=== PATIENT | female | born 1995 | race Caucasian/White ===

== ENCOUNTER → 2020-10-27 08:09 | Outpatient (CLI) | payer OTHER, SELFPAY ==
[2020-10-27 14:07] LABS: Urine N gonorrhoeae NOT DETECTED
[2020-10-27 14:09] LABS: Urine Chlamydia NOT DETECTED
== END ==
PROVIDERS: PCP Family Medicine; Visit Provider Specialist
DX: Z34.81 Encounter for supervision of other normal pregnancy, first trimester (principal); Z3A.10 10 weeks gestation of pregnancy
CPT/HCPCS: 87491; 87591

== ENCOUNTER → 2020-10-27 08:40 | Outpatient (CLI) | payer OTHER, SELFPAY ==
[2020-10-27 09:52] LABS: Add Manual Diff / Slide Review NO; Basophils Absolute Auto 100 /uL (0-100); Eosinophils Absolute Auto 200 /uL (0-450); Eosinophils Percent Auto 2.3 % (2-4); Hematocrit 41.1 % (36-46); Hemoglobin 13.8 g/dL (12.0-16.0); Lymphocytes Absolute Auto 1600 /uL (1100-4500); Lymphocytes Percent Auto 21.5 % (25-40); Mean Corpuscular HGB Conc 33.5 % (30-36); Mean Corpuscular Hemoglobin 31.6 PG (26-34); Mean Corpuscular Volume 94.4 fL (80-100); Monocytes Absolute Auto 500 /uL (0-900); Monocytes Percent Auto 7.2 % (3-14); Neutrophils Absolute Auto 5100 /uL (1500-7000); Platelet Count 218 X10^3/uL (150-400); Red Blood Cell Count 4.36 X10^6/uL (4.0-5.2); Red Cell Distribution Width 12.5 % (11.6-14.8); White Blood Cell Count 7.5 X10^3/uL (4.5-11.0)
[2020-10-27 09:58] LABS: Appearance Urine UA CLEAR; Bilirubin Urine UA NEGATIVE (NEGATIVE); Color Urine UA YELLOW; Glucose Urine UA NEGATIVE (Negative); Ketones Urine UA NEGATIVE (NEGATIVE); Leukocyte Esterase Urine UA 1+ (NEGATIVE); Nitrite Urine UA NEGATIVE (Negative); Occult Blood Urine UA NEGATIVE (Negative); Protein Urine UA NEGATIVE (Negative); Specific Gravity Urine UA 1.015 (1.000-1.035); Urobilinogen Urine UA 0.2 E.U./dL (0.2)
[2020-10-27 10:21] LABS: Bacteria Urine Moderate (10-30); RBC Urine 0-1/HPF (0-5/HPF); Squamous Epithelial Cell Urine 1-5 /HPF (0-5/HPF); WBC Urine 1-5/HPF (0-5/HPF)
[2020-10-27 10:56] LABS: Hepatitis B Surface Antigen NEGATIVE s/c (NEGATIVE); Rubella Antibody IgG 6.4 IU/mL (>15)
[2020-10-27 11:17] LABS: HIV 1 & 2 Ab/Ag 4th Gen Combo NEGATIVE (NEGATIVE); Hep C Virus Ab w/Reflex Quant NEGATIVE s/c (NEGATIVE)
[2020-10-28 07:54] LABS: RPR Screen Non Reactive (Non Reactive)
[2020-10-28 08:13] LABS: Varicella IgG Antibody <135 index (Immune >165)
== END ==
PROVIDERS: PCP Family Medicine; Referring Provider Specialist; Visit Provider Specialist
DX: Z34.81 Encounter for supervision of other normal pregnancy, first trimester (principal); Z3A.10 10 weeks gestation of pregnancy
CPT/HCPCS: 36415; 80055; 81003; 81015; 86787; 86803; 86850; 86900; 86901; 87086; 87389; 87491; 87591

== ENCOUNTER → 2021-01-04 14:03 | Outpatient (CLI) | payer OTHER, SELFPAY ==
[2021-01-06 20:09] LABS: AFP, Serum 48.5 ng/mL (.); Calc Gestational Age Ultrasound (.); Estriol, Free 3.24 ng/mL (.); Inhibin A, Dimeric 108.78 pg/mL (.); Inhibin A, MoM 0.74 (.); Maternal Ethnicity Caucasian (.); Maternal Weight 185 lbs (.); Number of Fetuses No (.); OSBR Risk 1 IN 8933 (.); Results Report (.); Test Results *Screen Negative* (.); hCG, MoM 1.25 (.); hCG, Serum 28919 mIU/mL (.)
== END ==
PROVIDERS: PCP Family Medicine; Referring Provider Specialist; Visit Provider Specialist
DX: Z34.82 Encounter for supervision of other normal pregnancy, second trimester (principal); Z3A.19 19 weeks gestation of pregnancy
CPT/HCPCS: 36415; 82105; 82677; 84702; 86336

== ENCOUNTER → 2021-01-11 12:03 | Outpatient (CLI) | payer OTHER, SELFPAY ==
--- NOTE | 2021-01-11 12:03 | DI.US.S_ITS ---
PROCEDURE: US OB >= 14 WEEKS FETUS INDICATIONS: 20 WEEK ANATOMY OUTSIDE/PRIOR DATING DATA: Last menstrual period (LMP): 08/16/2020 LMP-based estimated date of delivery (MONAE): 05/23/2021. First dating scan (date and location): 10/27/2020. Estimated date of delivery (MONAE) from first dating scan: 05/31/2021. The calculations are made using the ultrasound MONAE of 05/31/2021. TECHNIQUE: Real-time scanning was performed of the fetus, with image documentation and biometric measurements. Endovaginal scanning: Yes COMPARISON: [facility], , OB >= 14 WEEKS FETUS, 01/04/2021, 13:50. FINDINGS: General: A single living intrauterine gestation is present. Presentation: Cephalic. Placenta: Placental position is posterior and left , with possible complete previa versus marginal placenta. Amniotic fluid index: 12.6 cm, normal range is 5-24 cm. Single deepest vertical pocket is 4.99 cm. heart rate: 139 beats per minute. Maternal cervical canal: 6.3 cm long. Normal lower limit is 2.5 cm. biometrics: Biparietal diameter: 4.7 cm, 20 weeks 1 day Head circumference: 17.3 cm, 19 weeks 6 days Abdominal circumference: 15.5 cm, 20 weeks 5 days Femur length: 3.3 cm, 20 weeks 1 day Clinically estimated gestational age: 20 weeks 0 days Composite gestational age from present scan: 20 weeks 2 days Estimated weight and percentile: 350 g, 67th percentile Anatomic survey: Neuro: Ventricles are non-dilated at less than 10 mm. Cisterna magna is normal at 3-11 mm. Cerebellum is normal in size and morphology. Nuchal skin fold: Normal at less than 6 mm between 14-21 weeks gestational age. Face: Nose and lips, facial profile are normal. Spine: No evidence for spina bifida. Heart: 4-chambered heart is present, with normal ventricular outflow tracts. Diaphragm: Diaphragm is intact. Stomach: Left-sided stomach is present. Kidneys: No hydronephrosis. Normal is less than 5 mm in 2nd trimester, less than 7 mm in 3rd trimester. Cord: 3-vessel cord has orthotopic insertion. Bladder: Normal in size. Extremities: All 4 extremities identified. IMPRESSION: 1. Living 2nd trimester intrauterine . Ultrasound age is 2 days greater than clinical age based on initial ultrasound. 2. Marginal versus complete previa. 3. Normal anatomy study. Comment: Recommend follow-up imaging to re-evaluate the relationship between the placenta and the cervical os. We strive to produce accurate, complete, and clear reports of imaging services. To assist us in improving patient care, this report was composed using standard report templates and voice recognition software. Therefore, it may contain abnormal punctuation, insertions and/or omissions. Occasional wrong-word or sound-alike substitutions may occur. Though we review the report and make efforts to correct it, we do recommend that the report be read carefully in proper context to recognize any text inaccuracies. Dictated by: Giorgio Marie M.D. on 01/11/2021 at 15:15 Approved by: Giorgio Marie M.D. on 01/11/2021 at 15:21
== END ==
PROVIDERS: PCP Family Medicine; Referring Provider Specialist; Visit Provider Specialist
DX: Z34.82 Encounter for supervision of other normal pregnancy, second trimester (principal); Z3A.20 20 weeks gestation of pregnancy
CPT/HCPCS: 76811; 76817

== ENCOUNTER → 2021-02-21 07:34 | Outpatient (CLI) | payer OTHER, SELFPAY ==
[2021-02-21 09:45] LABS: Hemoglobin 12.2 g/dL (12.0-16.0)
[2021-02-21 10:18] LABS: GTT (PREG) 1 Hour PP 50gm Dose 86 mg/dL (76-139)
== END ==
PROVIDERS: PCP Family Medicine; Referring Provider Specialist; Visit Provider Specialist
DX: Z34.82 Encounter for supervision of other normal pregnancy, second trimester (principal)
CPT/HCPCS: 36415; 82950; 85014; 85018

== ENCOUNTER 2021-03-07 09:14 | Emergency (ER) | payer OTHER, SELFPAY ==
[2021-03-07 09:15] VITALS: BP 123/76; PULSE 90; RESP 14; TEMP 36.2; O2SAT 99; BMI 36.0
--- NOTE | 2021-03-07 09:23 | ED_ITS ---
HPI - URI/Sore Throat General Chief Complaint: Upper Respiratory Symptoms Stated Complaint: sore throat/cough x3 days Time Seen by Provider: 03/07/21 09:19 Source: patient Mode of arrival: Ambulatory Limitations: no limitations History of Present Illness HPI Narrative: This is a 25-year-old female who is 20 weeks . Patient states she has had 4 days of nasal congestion, sore throat with blister on her tonsil and productive cough. Patient has been afebrile. She has not had any chest pain or shortness of breath. She denies any persistent nausea or vomiting. She has had some nausea with her . She has not any diarrhea constipation. No dysuria urgency or frequency. No vaginal bleeding. She denies any abdominal pain or cramping. Patient states she is vaccinated x2 for coronavirus she also had her flu shot. Patient denies any other medical issues she takes a beef liver supplement and vitamin. No major surgeries. No known drug allergies. Patient follows with Dr. Moody for her care. Related Data Home Medications Medication Instructions Recorded Confirmed magnesium citrate 125 mg capsule 125 mg PO DAILY 10/25/20 01/04/21 prenat.vits,steffany,[id number] 1 tab PO DAILY 10/25/20 01/04/21 Allergies Allergy/AdvReac Type Severity Reaction Status Date / Time No Known Drug Allergies Allergy Verified 03/07/21 09:29 Review of Systems Review of Systems ROS Unobtainable: All systems reviewed & are unremarkable except as noted in HPI and below Patient History Medical History Chicken pox Gastric ulcer SAB (spontaneous ) (~06/2020) Therapeutic (~2010) Surgical History History of dilation and curettage (~2010) [place] teeth extracted (~2016) Family History Father Addiction Mother Addiction Cervical cancer Cancer Hypertension Grandfather Heavy smoker History of ETOH abuse Substance abuse Lung disease Grandmother No problems noted. Grandfather Heavy smoker Lung disease Grandmother Diabetes mellitus Type 2 diabetes mellitus Hypertension Morbid obesity Sister Substance abuse Depression Addiction Family/Other Addiction Substance abuse History of ETOH abuse Family/Other Cancer Breast cancer Morbid obesity Family/Other Diabetes mellitus Brother ADHD Social History marital status: number of children: 0 household members: spouse lives independently: Yes caregiver/support person: No pets and animals: Yes (Dog X 1) education level: college (Ass. Degree and Registry for [employer] and in School for her BA.) occupational status: employed current occupational exposures/hazards: Yes special grayson needs: No Smoking Status: Never smoker second hand exposure: No (as a child - but not as an adult) alcohol intake: former (pre- : very rare use (1-2/month if at all)) substance use type: does not use Smoking Status: Never smoker Exam Narrative Exam Narrative: GEN: well nourished, well appearing female, alert and oriented x 3, patient appears to be in mild distress. HEENT: Atraumatic, pupils are equal round reactive to light, extraocular movements are intact, nares are clear, TMs are clear with no fluid. Throat erythematous, slight bilateral tonsillar enlargement, no exudate, no uvular deviation. Normal speech. No muffled or hoarse voice. HEART: Regular rate and rhythm without murmur, clicks, rubs. LUNGS:Lungs clear to auscultation, no wheezes, rales, crackles, chest moves symmetrically ABD:bowel sounds normal, soft, non-tender, no guarding, rebound, rigidity, no masses noted, no hepatosplenomegaly :No CVA tenderness, gravid. MSCL: Full range of motion, normal gait NEURO:CN 2-12 intact, sensation normal Initial Vital Signs Initial Vital Signs: Vital Signs Temperature 97.2 F L 03/07/21 09:15 Pulse Rate 90 03/07/21 09:15 Respiratory Rate 14 03/07/21 09:15 Blood Pressure 123/76 03/07/21 09:15 Pulse Oximetry 99 03/07/21 09:15 Course Orders Ordered: ED Orders 03/07/21 09:26 COVID19 -Nasal swab/Pre-Proc Stat Reevaluation(s) Reevaluation #1: Updated patient on her negative rapid strep as well as COVID swab. We discussed she can have repeat swab in 1-2 days if she wishes. heart tones were also obtained and were appropriate. Patient's main concern was really checking on baby and having heart tones today. All questions answered. She has been taking Tylenol and Benadryl as needed for symptom control. Vital Signs Vital signs: Vital Signs - 8 hr 03/07/21 09:15 Temperature 97.2 F L Pulse Rate 90 Respiratory Rate 14 Blood Pressure 123/76 Pulse Oximetry 99 MDM - URI/Sore Throat Lab Data Labs: Lab Results 03/07/21 Range/Units 09:26 SARS-CoV-2 (PCR) Negative (Negative) Point of Care Testing Rapid Strep A Negative MDM Narrative Medical decision making narrative: This is a 25-year-old female with upper respiratory symptoms and sore throat. She is vaccinated x2 for COVID. She has a negative point of care strep. COVID swab is negative she is 4 days into symptoms so we discussed she could repeat 1- 2 days if she wishes. Patient has been tolerating her symptoms well. heart tones were appropriate as she is 28 weeks . All questions answered. Discharge Plan Departure Patient Disposition: Home Clinical Impression: Upper respiratory infection Instructions: DI for Viral Upper Respiratory Infection -- Adult Activity Restrictions/Additional Instructions: Follow-up with your physician for recheck. Your rapid strep was negative. Your COVID swab was also negative today. If you are concerned it would be appropriate for home testing in a day or 2 but is you have had 4 days of symptoms this is less likely to be a false negative. You may take Tylenol as needed for any headaches or aches and pains. Please return if you are having new chest pain, shortness of breath, lightheadedness or passing out, persistent vomiting, sudden new swelling in her extremities or other new or concerning symptoms. Prescriptions: No Action magnesium citrate 125 mg capsule 125 mg PO DAILY 0RF prenat.vits,steffany,[id number] Tablet 1 tab PO DAILY 0RF Referrals: Shanthi Swartz MD [Primary Care Provider] -
[2021-03-07 09:43] LABS: COVID19 -Nasal RAPID Negative (Negative)
== END 2021-03-07 10:01 | disposition home or self-care (01) ==
PROVIDERS: Emergency Provider Emergency Medicine; PCP Family Medicine
DX: O26.892 Other specified pregnancy related conditions, second trimester (principal); Z3A.20 20 weeks gestation of pregnancy; Z20.822 Contact with and (suspected) exposure to COVID-19
CPT/HCPCS: 87635; 87880; 99281; 99283; C9803

== ENCOUNTER → 2021-05-03 16:15 | Outpatient (CLI) | payer OTHER, SELFPAY ==
[2021-05-04 13:09] LABS: Strep Grp B PCR NEG for Grp B Strep
== END ==
PROVIDERS: PCP Family Medicine; Visit Provider Specialist
DX: Z34.83 Encounter for supervision of other normal pregnancy, third trimester (principal); Z3A.36 36 weeks gestation of pregnancy
CPT/HCPCS: 87653

== ENCOUNTER 2021-05-31 14:45 | Outpatient (CLI) | payer OTHER, SELFPAY ==
--- NOTE | 2021-05-31 16:26 | P.TNLD_ITS ---
Visit Information Visit Information Date of evaluation: 05/31/21 Primary OB Provider: Sadia Moody Reason for Evaluation: Yes non-stress test non-stress test reason: other (Post dates) [facility] Medical History Chicken pox Gastric ulcer SAB (spontaneous ) (~06/2020) Therapeutic (~2010) Surgical History History of dilation and curettage (~2010) [place] teeth extracted (~2016) Family History Father Addiction Mother Addiction Cervical cancer Cancer Hypertension Grandfather Heavy smoker History of ETOH abuse Substance abuse Lung disease Grandmother No problems noted. Grandfather Heavy smoker Lung disease Grandmother Diabetes mellitus Type 2 diabetes mellitus Hypertension Morbid obesity Sister Substance abuse Depression Addiction Family/Other Addiction Substance abuse History of ETOH abuse Family/Other Cancer Breast cancer Morbid obesity Family/Other Diabetes mellitus Brother ADHD Social History marital status: number of children: 0 household members: spouse lives independently: Yes caregiver/support person: No pets and animals: Yes (Dog X 1) education level: college (Ass. Degree and Registry for [employer] and in School for her BA.) occupational status: employed current occupational exposures/hazards: Yes special grayson needs: No Smoking Status: Never smoker second hand exposure: No (as a child - but not as an adult) alcohol intake: former (pre- : very rare use (1-2/month if at all)) substance use type: does not use Evaluation Evaluation Baseline heart rate: 135 Variability: Moderate (11-25) monitor accelerations: Present Monitor Decelerations: Absent Contraction Frequency (minutes): 10 Uterine Contraction Intensity: Mild Category of Tracing: Reactive Status: Category l Diagnosis, Plan/Disposition Final Diagnosis (1) 40 weeks gestation of : Status: Acute Plan/Disposition Plan: Reactive nonstress test. Routine precautions reviewed. Patient has an appointment in 4 days. Induction in 1 week. OB Disposition: home
== END 2021-05-31 15:24 | disposition home or self-care (01) ==
LOC: OB 06-06 07:44
PROVIDERS: PCP Family Medicine; Referring Provider Specialist; Visit Provider Specialist
DX: O48.0 Post-term pregnancy (principal); Z3A.40 40 weeks gestation of pregnancy
CPT/HCPCS: 59025; G0378; G0379

== ENCOUNTER 2021-06-02 02:47 | Outpatient (CLI) | payer OTHER, SELFPAY ==
--- NOTE | 2021-06-02 08:25 | PM.OBTRLD ---
Visit Information Visit Information Date of evaluation: 06/02/21 Primary OB Provider: Sadia Moody On-call OB Provider: Cammie Londono Reason for Evaluation: Yes rule out labor Comments/Additional reasons for admission: 25-year-old at 40 weeks and 2 days coming in with regular contractions. Denies leaking or bleeding and reports good movement. Vital Signs Vital Signs: Temperature 35.8? blood pressure 123/77 heart rate 83 PFSH Medical History Chicken pox Gastric ulcer SAB (spontaneous ) (~06/2020) Therapeutic (~2010) Surgical History History of dilation and curettage (~2010) [place] teeth extracted (~2016) Family History Father Addiction Mother Addiction Cervical cancer Cancer Hypertension Grandfather Heavy smoker History of ETOH abuse Substance abuse Lung disease Grandmother No problems noted. Grandfather Heavy smoker Lung disease Grandmother Diabetes mellitus Type 2 diabetes mellitus Hypertension Morbid obesity Sister Substance abuse Depression Addiction Family/Other Addiction Substance abuse History of ETOH abuse Family/Other Cancer Breast cancer Morbid obesity Family/Other Diabetes mellitus Brother ADHD Social History marital status: number of children: 0 household members: spouse lives independently: Yes caregiver/support person: No pets and animals: Yes (Dog X 1) education level: college (Ass. Degree and Registry for [employer] and in School for her BA.) occupational status: employed current occupational exposures/hazards: Yes special grayson needs: No Smoking Status: Never smoker second hand exposure: No (as a child - but not as an adult) alcohol intake: former (pre- : very rare use (1-2/month if at all)) substance use type: does not use Evaluation Evaluation Baseline heart rate: 120 Variability: Moderate (11-25) monitor accelerations: Present Monitor Decelerations: Absent Contraction Frequency (minutes): 6 Category of Tracing: Reactive Cervical dilation (cm): 3 Cervical effacement (%): 50 station: -1 Diagnosis, Plan/Disposition Final Diagnosis (1) 40 weeks gestation of : Status: Acute Plan/Disposition Plan: 25-year-old at 40 weeks and 2 days who presented to the center for a labor check. NST reactive. Contractions were irregular every 3-6 minutes. SVE unchanged from clinic. She was sent home with return precautions. Follow-up in clinic her return to center as needed. OB Disposition: home
== END 2021-06-02 03:44 | disposition home or self-care (01) ==
LOC: LABOR 02:51 → OB 06-06 07:41
PROVIDERS: PCP Family Medicine; Referring Provider Family Medicine; Visit Provider Family Medicine
DX: O47.1 False labor at or after 37 completed weeks of gestation (principal); O48.0 Post-term pregnancy; Z3A.40 40 weeks gestation of pregnancy
CPT/HCPCS: 59025; G0378; G0379

== ENCOUNTER 2021-06-05 07:51 | Outpatient (CLI) | payer OTHER, SELFPAY ==
--- NOTE | 2021-06-05 09:21 | PM.OBTRLD ---
Visit Information Visit Information Date of evaluation: 06/05/21 Primary OB Provider: Sadia Moody Reason for Evaluation: Yes non-stress test non-stress test reason: other (Post dates) Vital Signs Vital Signs: Blood pressure 128/79, pulse of 85, temperature 97.3? [facility] Medical History Chicken pox Gastric ulcer SAB (spontaneous ) (~06/2020) Therapeutic (~2010) Surgical History History of dilation and curettage (~2010) [place] teeth extracted (~2016) Family History Father Addiction Mother Addiction Cervical cancer Cancer Hypertension Grandfather Heavy smoker History of ETOH abuse Substance abuse Lung disease Grandmother No problems noted. Grandfather Heavy smoker Lung disease Grandmother Diabetes mellitus Type 2 diabetes mellitus Hypertension Morbid obesity Sister Substance abuse Depression Addiction Family/Other Addiction Substance abuse History of ETOH abuse Family/Other Cancer Breast cancer Morbid obesity Family/Other Diabetes mellitus Brother ADHD Social History marital status: number of children: 0 household members: spouse lives independently: Yes caregiver/support person: No pets and animals: Yes (Dog X 1) education level: college (Ass. Degree and Registry for [employer] and in School for her BA.) occupational status: employed current occupational exposures/hazards: Yes special grayson needs: No Smoking Status: Never smoker second hand exposure: No (as a child - but not as an adult) alcohol intake: former (pre- : very rare use (1-2/month if at all)) substance use type: does not use Review of Systems Review of Systems Narrative: Good movement. No leakage of fluid. No headaches, scotomata, epigastric pain. Contractions throughout the weekend but nothing regular. Evaluation Evaluation Baseline heart rate: 140 Variability: Moderate (11-25) monitor accelerations: Present Monitor Decelerations: Absent Category of Tracing: Reactive Status: Category l Cervical dilation (cm): 3 Cervical effacement (%): 80 station: 0 Diagnosis, Plan/Disposition Plan/Disposition Plan: Reactive nonstress test for postdates. Patient is scheduled for induction in 3 days. Routine precautions reviewed. OB Disposition: home
== END 2021-06-05 08:34 | disposition home or self-care (01) ==
LOC: LABOR 07:53 → OB 06-12 09:25
PROVIDERS: PCP Family Medicine; Referring Provider Specialist; Visit Provider Specialist
DX: O48.0 Post-term pregnancy (principal); Z3A.40 40 weeks gestation of pregnancy
CPT/HCPCS: 59025; G0378; G0379

== ENCOUNTER 2021-06-08 14:44 | Observation (INO) | payer OTHER, SELFPAY ==
[2021-06-08 16:31] LABS: Add Manual Diff / Slide Review NO; Basophils Absolute Auto 0 /uL (0-100); Basophils Percent Auto 0.4 % (0-2); Eosinophils Absolute Auto 100 /uL (0-450); Eosinophils Percent Auto 1.3 % (2-4); Hematocrit 34.4 % (36-46); Hemoglobin 11.4 g/dL (12.0-16.0); Lymphocytes Absolute Auto 1900 /uL (1100-4500); Lymphocytes Percent Auto 17.3 % (25-40); Mean Corpuscular HGB Conc 33.2 % (30-36); Mean Corpuscular Hemoglobin 26.6 PG (26-34); Mean Corpuscular Volume 80.2 fL (80-100); Monocytes Absolute Auto 900 /uL (0-900); Monocytes Percent Auto 8.1 % (3-14); Neutrophils Absolute Auto 7900 /uL (1500-7000); Neutrophils Percent Auto 72.9 % (50-75); Platelet Count 276 X10^3/uL (150-400); Red Blood Cell Count 4.29 X10^6/uL (4.0-5.2); Red Cell Distribution Width 14.3 % (11.6-14.8); White Blood Cell Count 10.8 X10^3/uL (4.5-11.0)
[2021-06-08] MEDS: OXYTOCIN PREMIX 30 UNIT/500 ML PLAST..BAG IV (16:36)
[2021-06-08] MEDS: LACTATED RINGERS 1,000 ML 100 ML IV (16:36)
--- NOTE | 2021-06-08 17:23 | PM.OBHP.1 ---
OB HPI Date/Time Date of admission: 06/08/21 Date Patient Seen: 06/08/21 Time Patient Seen: 17:23 History of Present Condition Chief complaint: INDUCTION : 3 Para: 0 Estimated Date of Delivery: 05/31/21 Estimated Gestational Age (weeks): 41 Narrative: Jamee Ruiz is a 25 year old female admitted for induction for postdates and LGA infant Indications Indication for induction OB: post dates History of Present care: good care, initiated at week # (9), number of visits (13) and pounds weight gain (40) Dating criteria: based on 1st trimester US only Ultrasounds: normal mid trimester US Obstetrical complications: none Medical complications: none Preadmission Labs Blood type: O (+) positive -: Antibody screen: negative, GBS status: negative, HBsAG: negative, HIV: negative and RPR/VDLR: negative -: Chlamydia screen: not detected and Gonorrhea screen: not detected -: Rubella: not immune and Varicella: not immune HCAB: negative Quad screen: Normal 1 hr GTT: 86 Evaluation Evaluation Baseline heart rate: 130 Variability: Moderate (11-25) monitor accelerations: Present Monitor Decelerations: Absent Category of Tracing: Reactive Status: Category l Dilation (cm): 4 Effacement (%): 75 station: -1 Position of cervix: posterior Consistency: medium PFSH Medical History Chicken pox Gastric ulcer SAB (spontaneous ) (~06/2020) Therapeutic (~2010) Surgical History History of dilation and curettage (~2010) [place] teeth extracted (~2016) Family History Father Addiction Mother Addiction Cervical cancer Cancer Hypertension Grandfather Heavy smoker History of ETOH abuse Substance abuse Lung disease Grandmother No problems noted. Grandfather Heavy smoker Lung disease Grandmother Diabetes mellitus Type 2 diabetes mellitus Hypertension Morbid obesity Sister Substance abuse Depression Addiction Family/Other Addiction Substance abuse History of ETOH abuse Family/Other Cancer Breast cancer Morbid obesity Family/Other Diabetes mellitus Brother ADHD Social History marital status: number of children: 0 household members: spouse lives independently: Yes caregiver/support person: No pets and animals: Yes (Dog X 1) education level: college (Ass. Degree and Registry for [employer] and in School for her BA.) occupational status: employed current occupational exposures/hazards: Yes special grayson needs: No Smoking Status: Never smoker second hand exposure: No (as a child - but not as an adult) alcohol intake: former (pre- : very rare use (1-2/month if at all)) substance use type: does not use Meds Home Medications and Allergies Home Medications Medication Instructions Recorded Confirmed Type magnesium citrate 125 mg capsule 125 mg PO DAILY 10/25/20 06/08/21 History prenat.vits,steffany,[id number] 1 tab PO DAILY 10/25/20 06/08/21 History omeprazole 40 mg capsule,delayed 40 mg PO DAILY #30 cap 05/29/21 06/08/21 Rx release Allergies Allergy/AdvReac Type Severity Reaction Status Date / Time No Known Drug Allergies Allergy Verified 06/08/21 16:20 Review of Systems Review of Systems Narrative: Good movement. No leakage of fluid. No headaches, scotoma or epigastric pain. OB Exam Narrative Exam Narrative: HEENT exam within normal limits. Lungs are clear to auscultation percussion. Heart is regular rate and rhythm no S3-S4 murmurs. Abdomen is gravid. Fetus is vertex. Extremities without edema and nontender. Objective Labs Result Diagrams: 06/08/21 15:45 Labs: Laboratory Results - last 24 hr 06/08/21 15:45 WBC 10.8 RBC 4.29 Hgb 11.4 L Hct 34.4 L MCV 80.2 MCH 26.6 MCHC 33.2 RDW 14.3 Plt Count 276 Neut % (Auto) 72.9 Lymph % (Auto) 17.3 L [place] % (Auto) 8.1 Eos % (Auto) 1.3 L Baso % (Auto) 0.4 Neut # (Auto) 7900 H Lymph # (Auto) 1900 [place] # (Auto) 900 Eos # (Auto) 100 Baso # (Auto) 0 Assessment and Plan Assessment and Plan Assessment and Plan narrative: Patient is 41 weeks gestation admitted for induction for postdates and LGA . Ultrasound performed on 05/31/2021 fetus measured 9 lb 10 oz. Time Spent with Patient Total time spent with greater than 50% in coordination of care (as documented) at patient's floor/unit and/or counseling patient:: less than 15 minutes
[2021-06-08 17:49] VITALS: BP 123/80
[2021-06-08 19:44] LABS: COVID19 -Nasal RAPID Negative (Negative)
--- NOTE | 2021-06-08 20:16 | PM.OBPNLAB ---
Date/Time Date Patient Seen: 06/08/21 Time Patient Seen: 20:05 Pain Control Pain control: tolerating well Comments: Patient is feeling contractions but not very painful yet. Contractions Pitocin rate (mU/min): 6 Contraction frequency (min): 2 Status status: Category l Heart Rate Baseline: 120 Monitor Accelerations: Present Monitor Decelerations: Absent Monitor Variability: Moderate Assessment and Plan Comments: 25 year old at 41 weeks here for postdates induction. Due to staffing, will turn off pitocin for now (hopefully three hours) and restart tonight once staffing is appropriate. Patient and her understand and are in agreement with plan.
--- NOTE | 2021-06-09 09:23 | PM.DS.1 ---
History of Present Illness History of Present Illness Date Patient Seen: 06/09/21 Time Patient Seen: 09:23 Chief complaint: INDUCTION Narrative: Patient is a 3 para 0 admitted for induction at 41-,2/7 weeks by dates. Due to the dizziness of the unit her induction was unable to be started. Discharge Providers Provider Date of admission: 06/08/21 14:44 Discharge Date: 06/09/21 Primary care physician: Shanthi Swartz MD Consults: 06/08/21 16:01 Consult to Anesthesiology Urgent Comment: Consulting Provider: Anesthesiologist Reason for consultation: Epidural Has provider been notified: No Discharge provider: Sadia Moody MD Summary Hospital Course Discharge Diagnosis: 41 and 2/7th weeks by dates Hospital Course: Patient arrived on Labor and delivery for induction for postdates and LGA infant. Due to the unit being busy and no nurse available induction was unable to be performed. Decision was made to transfer to another hospital for induction. Status at Discharge Cognitive/behavioral status at discharge: oriented Functional status at discharge: independent ambulation Overall status at discharge: patient is back to baseline Time Spent with Patient Time spent: Less than 30 minutes Exam Narrative Exam Narrative: Abdomen is soft, nontender. Abdomen is gravid, nontender. Fetus is vertex. Cervix is 5 cm dilated/75% effaced/-1 to 0 station. Extremities without edema and nontender. Objective Labs Result Diagrams: 06/08/21 15:45 Labs: Laboratory Results - last 24 hr 06/08/21 06/08/21 06/08/21 15:45 15:45 15:45 WBC 10.8 RBC 4.29 Hgb 11.4 L Hct 34.4 L MCV 80.2 MCH 26.6 MCHC 33.2 RDW 14.3 Plt Count 276 Neut % (Auto) 72.9 Lymph % (Auto) 17.3 L Douglas % (Auto) 8.1 Eos % (Auto) 1.3 L Baso % (Auto) 0.4 Neut # (Auto) 7900 H Lymph # (Auto) 1900 Douglas # (Auto) 900 Eos # (Auto) 100 Baso # (Auto) 0 SARS-CoV-2 (PCR) Negative Blood Type O Positive Antibody Screen Negative [facility] Medical History Chicken pox Gastric ulcer SAB (spontaneous ) (~06/2020) Therapeutic (~2010) Surgical History History of dilation and curettage (~2010) [place] teeth extracted (~2016) Family History Father Addiction Mother Addiction Cervical cancer Cancer Hypertension Grandfather Heavy smoker History of ETOH abuse Substance abuse Lung disease Grandmother No problems noted. Grandfather Heavy smoker Lung disease Grandmother Diabetes mellitus Type 2 diabetes mellitus Hypertension Morbid obesity Sister Substance abuse Depression Addiction Family/Other Addiction Substance abuse History of ETOH abuse Family/Other Cancer Breast cancer Morbid obesity Family/Other Diabetes mellitus Brother ADHD Social History marital status: number of children: 0 household members: spouse lives independently: Yes caregiver/support person: No pets and animals: Yes (Dog X 1) education level: college (Ass. Degree and Registry for [employer] and in School for her BA.) occupational status: employed current occupational exposures/hazards: Yes special grayson needs: No Smoking Status: Never smoker second hand exposure: No (as a child - but not as an adult) alcohol intake: former (pre- : very rare use (1-2/month if at all)) substance use type: does not use Discharge Assessment & Plan Assessment and Plan Assessment: 41 and 2/7th weeks gestation with ultrasound on 05/31/2021 giving an estimated weight of 9 lb 10 oz who was initially admitted for induction however due to lack of nursing availability induction was not able to be performed and at this point do not feel that it is safe for her to not be delivered. Patient was accepted for transfer by Dr. Dobson at [facility] Plan of Treatment: Patient will be discharged. She is to present herself to [facility]. Discharge Plan Discharge Plan Patient Disposition: Home Provider Discharge Comment: Patient has been accepted by Dr. Dobson at [facility] to begin induction. Discharge orders & Medications Prescriptions: Continued omeprazole 40 mg capsule,delayed release(DR/EC) 40 mg PO DAILY Qty: 30 1RF magnesium citrate 125 mg capsule 125 mg PO DAILY 0RF prenat.vits,steffany,[id number] Tablet 1 tab PO DAILY 0RF Follow up/Referrals: Shanthi Swartz MD [Primary Care Provider] - Diet/Activity/Treatments Diet: Clear Liquid Discharge Data Primary Care Provider: Shanthi Swartz Attending Provider: Sadia Moody
== END 2021-06-09 09:50 | disposition home or self-care (01) ==
PROVIDERS: Admitting Provider Specialist; PCP Family Medicine; Referring Provider Specialist; Visit Provider Specialist
DX: O48.0 Post-term pregnancy (principal); O36.63X0 Maternal care for excessive fetal growth, third trimester, not applicable or unspecified; Z3A.41 41 weeks gestation of pregnancy; Z20.822 Contact with and (suspected) exposure to COVID-19
CPT/HCPCS: 36415; 59025; 59050; 85025; 86850; 86900; 86901; 87635; C9803; G0378; G0379; J2590

== ENCOUNTER → 2022-03-28 08:26 | Outpatient (CLI) | payer OTHER, SELFPAY ==
--- NOTE | 2022-03-28 | DI.RAD.S_ITS ---
PROCEDURE: FL HIP INJECTION MR/CT RT INDICATIONS: RIGHT HIP PAIN TECHNIQUE: The indications, alternatives, benefits, risks, and complications of the procedure were explained to the patient. Written informed consent was obtained and placed in the chart. The hip was examined fluoroscopically with the legs fixed in slight internal rotation, and a site for needle placement chosen for entry into the hip joint from an anterior approach. Care was taken to locate the common femoral artery and vein beforehand. The skin was prepped and draped in a sterile fashion, and 1% Lidocaine infiltrated from skin down to joint capsule. A spinal needle was inserted into the joint, and a small amount of iodinated contrast media injected to confirm intra-articular placement of the needle tip. This was followed by approximately 10 mL dilute solution of a gadolinium containing MR contrast agent. The needle was removed and a dressing was applied. The patient was given postprocedural instructions and sent to the MR suite for imaging. COMPARISON: [facility], CR, XR PELVIS WITH BILATERAL LATERAL HIPS, 02/07/2022, 12:52. [facility], , MR HIP RT W CON, 03/28/2022, 9:47. FINDINGS: A single fluoroscopic spot image demonstrates intra-articular location of injected iodinated contrast. IMPRESSION: Successful fluoroscopically guided administration of dilute Gadolinium solution into the hip joint for MR arthrogram. Dictated by: Naldo Hinton M.D. on 03/28/2022 at 13:42 Approved by: Naldo Hinton M.D. on 03/28/2022 at 13:43
--- NOTE | 2022-03-28 | DI.MRI.S_ITS ---
PROCEDURE: MR HIP RT W CON INDICATIONS: RIGHT HIP PAIN TECHNIQUE: After the administration of 10 mL of dilute intra-articular Gadolinium contrast, coronal STIR of the bony pelvis; coronal and oblique axial T1 spin echo with fat saturation, axial T2 fast spin echo with fat saturation, sagittal T1 spin echo with and without fat saturation of the involved hip. COMPARISON: [facility], CR, XR PELVIS WITH BILATERAL LATERAL HIPS, 02/07/2022, 12:52. FINDINGS: Image quality: Excellent. Bones and joints: Bone marrow of the pelvic ring and proximal femurs show normal signal throughout. Slight prominence of right superior femoral head neck junction is seen which can be seen in the case of cam type femoral acetabular impingement. No intraosseous lesions or fractures. No avascular necrosis of the femoral head. The visualized lower lumbar spine appears normally aligned. The ligamental, neck, and labral plicae appear normal where visualized. Tendons and ligaments: The gluteus medius and minimus tendons appear intact, without associated muscle atrophy. The nearby proximal iliotibial band also appears intact. The iliopsoas tendon appears intact, without adjacent bursal fluid collections or evidence for impingement syndrome. The origin of the hamstring tendon is intact at the ischial tuberosity, as well as the associated sacrotuberous ligament. The straight and reflected heads of the rectus femoris muscle origin appear intact, as well as the conjoint tendon. The ligamentum teres appears intact where visualized. Labrum and cartilage: The acetabular labrum appears intact throughout. Cartilage surface of the femoral head appears of normal thickness. No paralabral cysts. The alpha angle of the femur is within normal limits at less than 55 degrees. Soft tissues: Visualized muscles demonstrate normal bulk and internal signal. Quadratus femoris muscle demonstrates no internal edema to suggest ischiofemoral impingement. The proximal sciatic neurovascular bundle appears normal adjacent to the hamstring tendons. No free pelvic fluid. Bladder wall thickness is normal. Genitourinary structures and bowel loops appear normal where visualized. IMPRESSION: 1. No evidence of focal labral tear. 2. No muscle or tendon signal abnormalities. 3. No marrow edema. No fracture or dislocation. Slight prominence of superior right femoral head neck junction which can be seen associated with CAM type femoral acetabular impingement. No evidence of avascular necrosis of femoral heads. Dictated by: Raymond Quintana M.D. on 03/28/2022 at 12:55 Approved by: Raymond Quintana M.D. on 03/28/2022 at 13:15
== END ==
PROVIDERS: PCP Physician Assistant; Referring Provider Orthopaedic Surgery; Visit Provider Orthopaedic Surgery
DX: M25.551 Pain in right hip (principal); M25.552 Pain in left hip
CPT/HCPCS: 27093; 73722; 77002